=== PATIENT | female | born 1985 | race Caucasian/White ===

== ENCOUNTER 2018-07-13 21:00 | Emergency (ER) | payer MEDICAID ==
[2018-07-13 23:41] LABS: URINE BLOOD (Dip) POC Negative (NEGATIVE); URINE GLUCOSE (Dip) POC Negative (NEGATIVE); URINE KETONES (Dip) POC Negative (NEGATIVE); URINE LEUKOCYTE EST (Dip) POC Negative (NEGATIVE); URINE NITRITE (Dip) POC Negative (NEGATIVE); URINE TOTAL PROTEIN POC Trace (NEGATIVE)
== END 2018-07-14 02:23 | disposition home or self-care (01) ==
LOC: FTE 07-14 02:23
DX: R05 Cough (principal)
CPT/HCPCS: 71045; 81003; 81025; 99283-25